=== PATIENT | male | born 1945 | race Caucasian/White ===

== ENCOUNTER 2016-10-24 09:36 | Emergency (ER) | payer MEDICARE, OTHER | END 2016-10-24 12:07 | disposition home or self-care (01) | LOC: ER 09:36 | DX: J32.0 Chronic maxillary sinusitis (principal); R11.0 Nausea; E03.9 Hypothyroidism, unspecified; K21.9 Gastro-esophageal reflux disease without esophagitis; Z88.8 Allergy status to other drugs, medicaments and biological substances; Z79.899 Other long term (current) drug therapy | CPT/HCPCS: 87502; 87651 ==

== ENCOUNTER 2016-10-29 07:59 | Emergency (ER) | payer MEDICARE, OTHER | END 2016-10-29 14:50 | disposition home or self-care (01) | LOC: ER 07:59 | DX: J44.0 Chronic obstructive pulmonary disease with (acute) lower respiratory infection (principal); J20.9 Acute bronchitis, unspecified; J18.9 Pneumonia, unspecified organism; R91.8 Other nonspecific abnormal finding of lung field; R42 Dizziness and giddiness; K21.9 Gastro-esophageal reflux disease without esophagitis; Z87.442 Personal history of urinary calculi; Z79.899 Other long term (current) drug therapy; Z88.8 Allergy status to other drugs, medicaments and biological substances | CPT/HCPCS: 36415; 94640; 96365; 96367; 96375; J0696; J1885; Q9967 ==